=== PATIENT | female | born 1945 | race Caucasian/White ===

== ENCOUNTER → 2020-06-15 | Day surgery (SDC) | payer MEDICARE ==
[~2020-06-15] VITALS: Ht 154.9 cm; Wt 61.7 kg
[~2020-06-15] MED LIST: ATENOLOL100 MG PO; BENICAR40 MG PO; CALCIUM PO; HYDROCHLOROTH12.5 MG PO; LEVOTHYROXINE88 MC1 PO; LIPITOR80 MG PO; LO-DOSE ASPIRIN81 MG PO; LORATADINE10 MG PO; MEGA BIOTIN10000 MCG PO; NITRO-DUR1 EACH TOP; OMEPRAZOLE40 MG PO; PLAVIX75 MG PO; REGLAN10 MG PO; VITAMIN B12 PO; VITAMIN C1000 MG PO; VITAMIN D PO; XANAX1 MG PO
[2020-06-15 09:42] LABS: HEMOGLOBIN 13.5 gm/dl (12.3-15.3); RED BLOOD COUNT 4.46 M/UL (4.00-5.10); WHITE BLOOD COUNT 5.4 K/UL (4.5-11.0)
[2020-06-15 10:03] LABS: BUN/CREATININE RATIO 14 (0-10)
== END | disposition home or self-care (01) ==
LOC: OR 09:09
PROVIDERS: Orthopaedic Surgery
DX: S52.501A Unspecified fracture of the lower end of right radius, initial encounter for closed fracture (principal); I10 Essential (primary) hypertension; E78.5 Hyperlipidemia, unspecified; E07.9 Disorder of thyroid, unspecified; I25.10 Atherosclerotic heart disease of native coronary artery without angina pectoris; K21.9 Gastro-esophageal reflux disease without esophagitis; I25.2 Old myocardial infarction; J98.11 Atelectasis; Z95.5 Presence of coronary angioplasty implant and graft; W19.XXXA Unspecified fall, initial encounter; Z79.82 Long term (current) use of aspirin; Z79.02 Long term (current) use of antithrombotics/antiplatelets; Z79.899 Other long term (current) drug therapy
CPT/HCPCS: 36415; 71045; 73110; 76000; 80048; 85027; 93005; C1713; J0171; J0690; J1100; J2001; J2405; J2704; J2795; J3010; J7120